=== PATIENT | male | born 1960 | race American Indian/Alaskan Native ===

== ENCOUNTER 2017-01-14 13:39 | Emergency (ER) | payer SELFPAY ==
[2017-01-14] MEDS ORDERED: DECADRON IM STA (19:53)
--- NOTE | 2017-01-14 19:53 | Emergency Department Report ---
ED Rash HPI - HPI Chief Complaint: Skin Rash Stated Complaint: ECZEMA Time Seen by Provider: 01/14/17 19:15 Duration: 4 Days Location: Upper Extremities (bilateral hands and left forearm) Suspected Cause: Other (chronic eczema) Rash Symptoms: Yes Itching, Yes Peeling (to both hands and left forearm), No Facial Swelling, No Tongue/Oral Swelling, No Breathing Difficulties, No Choking Sensation, No Wheezing/Dyspnea, No Blistering, No Fever, No Lightheaded, No Malaise, No Myalgias Severity: mild (itching) Other History: Patient here complaining of eczema flareup that has been ongoing and is getting worse over the last 4 days. He said getting worse over 4 days. history of diabetes is diet controlled and he didn't think that she go to today was 125. topical lotion without any results. The patient denies any fever or chills. Denies any respiratory symptoms. He just moved to [place] and he is trying to get insurance so he can go to [facility]. ED Review of Systems ROS: Stated complaint: ECZEMA Other details as noted in HPI Comment: All other systems reviewed and negative Constitutional: denies: chills, fever ENT: denies: ear pain, throat pain, congestion Respiratory: no symptoms reported Cardiovascular: denies: chest pain, palpitations, edema, syncope Gastrointestinal: denies: abdominal pain, nausea, vomiting Musculoskeletal: denies: back pain, joint swelling, arthralgia, myalgia Skin: rash, pruritus Neurological: denies: headache ED Past Medical Hx - Past Medical History Previous Medical History?: Yes Hx Diabetes: Yes Additional medical history: eczema - Surgical History Past Surgical History?: Yes Additional Surgical History: umbilical hernia surgery and right ulna nerve surgery - Family History Family history: hypertension - Social History Smoking Status: Never Smoker Substance Use Type: Alcohol, Prescribed, Other - Medications Home Medications: Home Medications Medication Instructions Recorded Confirmed Last Taken Type Triamcinolone 0.5% [Kenalog 0.5% 1 applic TP TID #1 tube 01/14/17 Unknown Rx CREAM] predniSONE [Deltasone] 20 mg PO QDAY #3 tab 01/14/17 Unknown Rx Rash Exam - Exam General: Vital signs noted. No distress. Alert and acting appropriately. This is a 56-year-old male well-nourished well-developed in no acute distress. HEENT: No Periorbital Edema, No Conjuctival Injection, No Chemosis, No Perioral Edema, No Tongue Edema, No Uvular Edema, No Compromised Airway, No Drooling Lungs: Yes Good Air Exchange, No Wheezes, No Ronchi, No Stridor, No Cough, No Labored Respirations, No Retractions, No Use of Accessory Muscles, No Other Abnormal Lung Sounds Heart: Yes Regular, No Murmur Skin: Yes Other (dry scaly area noted to bilateral palms and dorsal aspect of hand and left forearm.), No Urticarial Rash, No Maculopapular Rash, No Morbilliform rash, No Bulla(e), No Excoriations, No Weeping, No Tenderness, No Erythema Other: Positive: Abdomen Normal, Neurologic Normal, Musculoskeletal Normal ED Course Vital Signs 01/14/17 15:00 Temperature 98.1 F Pulse Rate 85 Respiratory 18 Rate Blood Pressure 129/88 O2 Sat by Pulse 99 Oximetry - Reevaluation(s) Reevaluation #1: 01/14/17 21:26 Patient given Decadron 10 mg in the emergency room for eczema flare. 01/14/17 21:26 Blood glucose at 85 ED Medical Decision Making - Lab Data Lab Results 01/14/17 Range/Units 20:11 POC Glucose 85 (70-105) - Medical Decision Making ED course: Pt eczema flareup and pruritus. He was treated in the emergency room with Decadron 10 mg IM. Blood glucose is at 85. I discussed treatment plan with patient and he voiced understanding. Patient discharged home with prescription for triamcinolone which is what he uses for his eczema and prednisone. I discussed with him that if he does have a primary care physician he needs to follow-up with [facility] in 3 days and also with [facility] to manage chronic eczema. Critical care attestation.: If time is entered above; I have spent that time in minutes in the direct care of this critically ill patient, excluding procedure time. ED Disposition Clinical Impression: Pruritic condition Eczema Qualifiers: Eczema type: unspecified Qualified Code(s): L30.9 - Dermatitis, unspecified Disposition: DC-01 TO HOME OR SELFCARE Is pt being admited?: No Does the pt Need Aspirin: No Condition: Stable Instructions: Eczema (ED), Itchy Skin (ED) Additional Instructions: Please follow up with [facility] C information and discharge instruction paperwork Take medication as prescribed Increase your fluid intake Prescriptions: predniSONE [Deltasone] 20 mg PO QDAY #3 tab Triamcinolone 0.5% [Kenalog 0.5% CREAM] 1 applic TP TID #1 tube Referrals: [facility] [Outside] - 01/17/17 JULIEN LYNNE MD [Staff Physician] - 01/17/17 Forms: Work/School Release Form(ED)
[2017-01-14 20:56] VITALS: BP 154/89
== END 2017-01-14 21:30 | disposition home or self-care (01) ==
LOC: ED 13:39
DX: L29.8 Other pruritus (principal); L30.8 Other specified dermatitis; E11.9 Type 2 diabetes mellitus without complications
CPT/HCPCS: 82962; 96372; 99282; J1100